=== PATIENT | female | born 1960 | race Hispanic/Latino ===

== ENCOUNTER 2017-09-05 15:52 | Outpatient (CLI) | payer OTHER | END 2017-09-05 15:53 | disposition home or self-care (01) | LOC: BICMAMMO 15:52 | PROVIDERS: ATTEND Family Medicine | DX: Z12.31 Encounter for screening mammogram for malignant neoplasm of breast (principal) | CPT/HCPCS: 77063; 77067 ==

== ENCOUNTER 2017-12-15 11:59 | Outpatient (CLI) | payer OTHER | END 2017-12-15 12:00 | disposition home or self-care (01) | LOC: BICRAD 11:59 | PROVIDERS: ATTEND Family Medicine | DX: M70.71 Other bursitis of hip, right hip (principal); M16.0 Bilateral primary osteoarthritis of hip ==

== ENCOUNTER 2018-02-20 07:40 | Observation (INO) | payer OTHER ==
[2018-02-20 08:01] LABS: #Basophils 0.1 thou/uL (0.0-0.2); #Eosinphils 0.2 thou/uL (0.0-0.7); #Monocytes 0.6 thou/uL (0.11-0.59); #Neutrophils 6.4 thou/uL (1.40-6.50); %Basophils 0.8 % (0.0-1.0); %Eosinophils 1.8 % (0.0-10.0); %Lymphocytes 22.1 % (21.0-51.0); %Monocytes 6.4 % (0.0-10.0); Mean Corpuscular HGB CONC 33.6 g/dL (32.0-36.0); Mean Corpuscular Hemoglobin 34.5 pg (27.0-31.0); Mean Platelet Volume 6.9 fL (7.4-10.4); Platelet Count 312 thou/uL (130-400); RBC Distribution Width 11.7 % (11.5-14.5); Red Blood Cell (RBC) Count 4.06 mill/uL (4.20-5.40); White Blood Cell (WBC) Count 9.3 thou/uL (4.8-10.8)
--- NOTE | 2018-02-20 08:46 | RAD ---
PORTABLE UPRIGHT FRONTAL CHEST: Date: 02/20/18 COMPARISON: 01/02/05. HISTORY: Shortness of breath, emergency examination. FINDINGS: There is no pneumothorax or pleural fluid, and no focal consolidation or alveolar edema. IMPRESSION: No acute findings. POS: [facility]
[2018-02-20 09:17] LABS: ALT (SGPT) 17 U/L (8-55); AST (SGOT) 18 U/L (5-34); Albumin 4.6 g/dL (3.5-5.0); Alkaline Phosphatase 56 U/L (40-150); Anion Gap 16 mmol/L (10-20); BUN (Urea Nitrogen) 14 mg/dL (9.8-20.1); Bilirubin, Total 0.5 mg/dL (0.2-1.2); CK (CPK) 133 U/L (29-168); Calc. Creatinine Clearance 0 mL/min (70-130); Calcium 9.9 mg/dL (7.8-10.44); Carbon Dioxide 26 mmol/L (22-29); Chloride 96 mmol/L (98-107); Estimated GFR-MDRD 89; Globulin 3.3 g/dL (2.4-3.5); Glucose 185 mg/dL (70-105); Potassium 3.4 mmol/L (3.5-5.1); Protein, Total 7.9 g/dL (6.0-8.3); Sodium 135 mmol/L (136-145)
[2018-02-20 09:19] LABS: CKMB 2.5 ng/mL (0-6.6); Troponin I Less than 0.010 ng/mL (< 0.028)
[2018-02-20 10:07] LABS: Bilirubin Negative (Negative); Blood, Urine Negative (Negative); Clarity CLEAR (Clear); Glucose, Urine (Dipstick) >=1000 mg/dL (Negative); Leukocyte Negative (Negative); Nitrite Negative (Negative); Protein, Urine (Dipstick) Negative (Neg-Trace); Specific Gravity, Urine 1.012 (1.002-1.036); Urobilinogen 0.2 mg/dL (0.2-1.0); pH, Urine 5.5 (5.0-9.0)
[2018-02-20] MEDS ORDERED: Potassium Chloride 20 MEQ TAB ONE ×2 (11:27)
[2018-02-20] MEDS ORDERED: Acetaminophen 325 MG TAB PO PRN (12:06)
[2018-02-20] MEDS ORDERED: Benzonatate 100 MG CAP PO PRN (12:06)
[2018-02-20] MEDS ORDERED: cloNIDine 0.1 MG TAB PO PRN (12:06)
[2018-02-20] MEDS ORDERED: HumaLOG 300 UNITS/3 ML VIAL SC PRN ×2 (12:06)
[2018-02-20] MEDS ORDERED: hydrALAZINE 20 MG/ML VIAL SLOW IVP PRN (12:06)
[2018-02-20] MEDS ORDERED: Acetaminophen 500 MG TAB PO PRN (12:06)
[2018-02-20] MEDS ORDERED: Dextrose 5% in Water 1,000 ML IV PRN (12:06)
[2018-02-20] MEDS ORDERED: Sodium Chloride 0.65% Nasal 44 ML BOT EA NARE PRN (12:06)
[2018-02-20] MEDS ORDERED: Dextrose 50% Abboject 50 ML SYRINGE SLOW IVP PRN (12:06)
[2018-02-20] MEDS ORDERED: Nitroglycerin 0.4 MG TAB (25 Tab Bottle) SL PRN (12:06)
[2018-02-20] MEDS ORDERED: Ondansetron PF 4 MG/2 ML Vial IVP PRN (12:06)
[2018-02-20] MEDS ORDERED: Senokot S 8.6-50 MG TAB PO PRN ×2 (12:06)
[2018-02-20] MEDS ORDERED: Bisacodyl 5 MG TAB PO PRN (12:06)
[2018-02-20] MEDS ORDERED: Aspirin 81 mg Enteric Coated Tablet PO SCH (12:15)
[2018-02-20 12:42] LABS: Troponin I Less than 0.010 ng/mL (< 0.028)
[2018-02-20 14:49] LABS: Cardiac Risk 2.4 (Less than 4.5)
[2018-02-20 14:53] LABS: Troponin I Less than 0.010 ng/mL (< 0.028)
[2018-02-20 16:03] LABS: Thyroid Stimulating Hormone 0.8535 uIU/mL (0.35-4.94)
[2018-02-20] MEDS ORDERED: Lorazepam 1 MG TAB PO PRN (18:11)
[2018-02-20] MEDS ORDERED: Lorazepam 2 MG/ML VIAL SLOW IVP PRN (18:11)
[2018-02-20] MEDS ORDERED: Carvedilol 3.125 MG TAB PO SCH (18:30)
--- NOTE | 2018-02-20 19:36 | HP ---
PRIMARY CARE PHYSICIAN: Chevy Powell MD. CHIEF COMPLAINT: Fast heart rate. HISTORY OF PRESENT ILLNESS: Ms. Sexton is a pleasant 57-year-old female with past medical history of diabetes and hypertension who presented to the ER with the above mentioned complaint. History is mainly obtained by the patient herself and supplemented by her present at the bedside. The patient reports that she has noticed the palpitation on 2 more occasions in the last few months. Last night while she went up to go to the restroom, she noticed palpitation and her checked her heart rate and blood pressure. Blood pressure was in the 150s, but her heart rate was in the 130s. She had the feeling of lightheadedness. No recent illnesses. She denies any chest pain with these symptoms. No nausea, vomiting, diarrhea, dysuria, frequency, urgency lately. No orthopnea or PND. She came to the emergency room and was found to have heart rate of 133 upon presentation. A 12-lead EKG was done which showed sinus tachycardia without any significant ectopy. It was found to be narrow complex tachycardia. Her chest x-ray and cardiac enzymes were unremarkable. She was given aspirin and saline. She was found to have low potassium which was supplemented and magnesium was checked which was unremarkable. She is now being admitted in the observation status for further workup for possible SVT. She denies any personal or family history of the same. PAST MEDICAL HISTORY: 1. Diabetes mellitus. 2. Hypertension. PAST SURGICAL HISTORY: Hysterectomy. PSYCHIATRIC HISTORY: No anxiety. No depression. SOCIAL HISTORY: She does drink quite heavily. She drinks about 4 to 6 ounces of whiskey at least up to 3 drinks per night. She used to also drink heavily beer in the day, but she has cut back on that and has not had daytime drinking in the last 5 or 6 months. She denies any drug or tobacco abuse. FAMILY HISTORY: No family history of premature coronary artery disease or stroke. ALLERGIES: NO KNOWN MEDICATION ALLERGIES. CURRENT MEDICATIONS: 1. Hydrochlorothiazide 25 mg daily. 2. Invokana 300 mg daily. 3. Amlodipine 10 mg daily. 4. Glyburide/metformin 5/500 two tablets p.o. b.i.d. 5. Synthroid 50 mcg daily. 6. Benazepril 40 mg daily. REVIEW OF SYSTEMS: A 12-point review of systems was done. It is negative except for those mentioned in the history and physical. DIAGNOSTIC STUDIES: LABORATORY RESULTS: Her CBC is rather unimpressive. She does have some macrocytosis without any anemia. D-dimer is 0.28. Serum chemistry shows sodium 135, potassium 3.4, blood sugar 185, otherwise unremarkable. Magnesium normal. Troponin less than 0.010 x3 with normal CK-MB. TSH and T4 are within normal limits. Urinalysis shows glucosuria and some ketones. IMAGING STUDIES: Chest x-ray by my review shows no acute cardiopulmonary abnormality. A 12-lead EKG by my review shows narrow complex sinus tachycardia with heart rate of 123 beats per minute. QTc interval of 463 msec. PHYSICAL EXAMINATION: VITAL SIGNS: Most recent vital signs are temperature 98.6, pulse of 102, respirations 16, saturating 96% on room air, and blood pressure 149/73. GENERAL: No acute distress. Awake, alert, and oriented x3. HEENT: Mucous membrane is moist and pink. No oropharyngeal exudate or erythema. Head is normocephalic and atraumatic. Pupils equal and reactive to light and accommodation. Extraocular movement intact. NECK: Supple without any JVD or bruit. CHEST: Clear to auscultation without any wheezing, rales, or rhonchi. She is tachycardic with regular rhythm without any specific murmurs. ABDOMEN: Soft, nontender, nondistended with positive bowel sounds. EXTREMITIES: Free of any cyanosis, clubbing, or edema. NEUROLOGIC: Nonfocal. SKIN: Free of any rashes or bruises. Feels warm and dry to touch. PSYCHIATRIC: Normal affect. IMPRESSION AND PLAN: 1. Supraventricular tachycardia. No specific causes evident at this time. The patient drinks heavily, but has been drinking on a daily basis, so withdrawal symptoms are not suspected. We will obtain transthoracic echocardiogram to rule out alcoholic cardiomyopathy as a cause. She will be continued on her home medications and we will add low dose beta-wadna at this time. Discontinue her hydrochlorothiazide in lieu of beta-wanda to prevent hypotension. Her TSH has been checked and it was found to be unremarkable. We will request consultation from Cardiology as the patient might benefit from an event or Holter monitor. Further management will depend upon her clinical course and the results of the echocardiogram. 2. Hypokalemia. It has been replaced and we will recheck in the morning. Magnesium is unremarkable. 3. Mild hyponatremia likely secondary to hydrochlorothiazide. We will hold it for now. 4. Hypertension. Restart home medication except for hydrochlorothiazide as above. 5. Dyslipidemia. Lipids panels will be ordered. 6. Alcohol abuse. The patient will be started on ASE protocol. I have encouraged her for abstinence and she seems compliant with advise at this time. She will be started on multivitamin, folic acid as well as vitamin B12. 7. Diabetes mellitus, non-insulin dependent. We will restart her home medication of Invokana, but hold her metformin and glyburide for now to avoid any acute renal failure or metabolic acidosis. Add insulin sliding scale with frequent Accu-Cheks for further control. Carb-consistent diet has been ordered. 8. Code status, full code discussed with the patient. 9. Disposition. Ms. Sexton is currently being admitted to the hospital for what sounds like supraventricular versus sinus tachycardia of unclear etiology. Further management will depend upon her clinical course and recommendations from cardiology team. She is currently in the observation status. Job ID: [id number]
[2018-02-20] MEDS: Famotidine 20 MG TAB PO SCH (20:01)
[2018-02-21] MEDS ORDERED: Levothyroxine Sodium 50 MCG TAB PO SCH (06:00)
[2018-02-21 06:46] LABS: #Basophils 0.1 thou/uL (0.0-0.2); #Eosinphils 0.2 thou/uL (0.0-0.7); #Lymphocytes 1.5 thou/uL (1.20-3.40); #Monocytes 0.7 thou/uL (0.11-0.59); #Neutrophils 3.9 thou/uL (1.40-6.50); %Eosinophils 3.2 % (0.0-10.0); %Lymphocytes 23.6 % (21.0-51.0); %Monocytes 10.3 % (0.0-10.0); %Neutrophils 61.9 % (42.0-75.0); Hemoglobin 13.5 g/dL (12.0-16.0); Mean Corpuscular HGB CONC 33.5 g/dL (32.0-36.0); Mean Corpuscular Hemoglobin 34.8 pg (27.0-31.0); Mean Platelet Volume 7.1 fL (7.4-10.4); Platelet Count 309 thou/uL (130-400); RBC Distribution Width 11.9 % (11.5-14.5); Red Blood Cell (RBC) Count 3.88 mill/uL (4.20-5.40); White Blood Cell (WBC) Count 6.3 thou/uL (4.8-10.8)
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
[2018-02-21 06:55] LABS: Anion Gap 15 mmol/L (10-20); BUN (Urea Nitrogen) 13 mg/dL (9.8-20.1); Calc. Creatinine Clearance 0 mL/min (70-130); Calcium 9.6 mg/dL (7.8-10.44); Carbon Dioxide 26 mmol/L (22-29); Chloride 102 mmol/L (98-107); Estimated GFR-MDRD Greater than 90; Glucose 116 mg/dL (70-105); Potassium 4.1 mmol/L (3.5-5.1); Sodium 139 mmol/L (136-145)
[2018-02-21] MEDS ORDERED: Carvedilol 3.125 MG TAB PO SCH (08:00)
[2018-02-21 08:17] VITALS: TEMP 98
[2018-02-21] MEDS ORDERED: Folic Acid 1 MG TAB PO SCH (09:00)
[2018-02-21] MEDS ORDERED: Enoxaparin Sodium 40 MG/0.4 ML SYRINGE SC SCH (09:00)
[2018-02-21] MEDS ORDERED: Canagliflozin [Invokana] 300 MG PO SCH (09:00)
[2018-02-21] MEDS ORDERED: Aspirin 81 mg Enteric Coated Tablet PO SCH (09:00)
[2018-02-21] MEDS: Famotidine 20 MG TAB PO SCH (09:10)
[2018-02-21] MEDS: Amlodipine 10 MG TAB PO SCH ×2 (09:10→09:15)
[2018-02-21 12:11] VITALS: BP 121/70
--- NOTE | 2018-02-21 13:49 | PDOC.CTH ---
Cardiology Progress Note - Subjective The pt seen and examined. No overnight events. No overnight events. - Objective Vital Signs Temp Pulse Resp BP BP Pulse Ox 02/21/18 13:18 87 02/21/18 12:26 46 L 02/21/18 11:09 98.0 F 91 16 121/70 94 L 02/21/18 08:00 126/73 02/21/18 07:23 98.0 F 89 16 126/73 96 02/21/18 05:54 98.4 F 88 14 134/76 99 02/21/18 04:00 121/72 Weight 5.855 oz 02/20/18 02/21/18 02/22/18 06:59 06:59 06:59 Intake Total 480 Balance 480 - Physical Examination General/Neuro: alert & oriented x3 Neck: no JVD present Lungs: CTA Heart: RRR Abdomen: soft Extremities: other: (No edema) - Telemetry Telemetry Rhythm: SR 70-80s - Labs Result Diagrams: 02/21/18 06:21 02/21/18 06:21 Troponin/CKMB CK-MB (CK-2) 2.5 ng/mL (0-6.6) 02/20/18 07:53 Troponin I Less than 0.010 ng/mL (< 0.028) 02/20/18 14:22 - Assessment/Plan 1. ST - well controlled HR with Coreg 3.125mg BID; 2. HTN - stable with Coreg 3.125mg BID only; Holding Norvasc 5mg qd and Benazepril 40mg qd. 3. DM type 2 - managed by PCP 4. ETOH abuse - ETOH cessation education given to the pt MAR reviewed * Echo on 02/20/18 showed EF 55-60% with grade I diastolic dysfunction. * The pt is stable to d/c home. Holding Norvasc and Benazepril until she f/u with Dr Yu' office within 10 days or call the office for SBP > 150. Review of Systems - Review of Systems Constitutional: reports: no symptoms reported EENTM: reports: no symptoms reported Respiratory: reports: no symptoms reported Cardiac (ROS): reports: no symptoms reported ABD/GI: reports: no symptoms reported : reports: no symptoms reported Musculoskeletal: reports: no symptoms reported Skin: reports: no symptoms reported
--- NOTE | 2018-02-21 19:24 | DIS ---
DATE OF ADMISSION: 02/20/2018 DATE OF DISCHARGE: 02/21/2018 DISCHARGE DISPOSITION: Home. FOLLOWUP: 1. Follow up with primary care physician, Dr. Chevy Powell, in one week. 2. Follow up with Cardiology, Dr. Yu, in 10 days. The patient was advised to call Dr. Yu' office if the systolic blood pressure remains over 150. ALLERGIES: NO KNOWN DRUG ALLERGIES. DISCHARGE MEDICATIONS: 1. Carvedilol 3.125 mg b.i.d. 2. Aspirin 81 mg daily. 3. Levothyroxine 50 mcg daily. 4. Glyburide and metformin 5/500 two tabs b.i.d. 5. Invokana 300 mg daily. The patient was seen and examined on the day of discharge. Denies any new complaints. No chest pain, shortness of breath, palpitations reported. BRIEF HOSPITAL COURSE: The patient is a 57-year-old female with diabetes mellitus type 2 and hypertension, presented to the hospital with palpitations. Her heart rate was in 130s at home per patient report. Please refer to the history and physical dated February 20, 2018, by Dr. Short for further details. The patient was admitted to the hospital with a diagnosis of palpitations probably secondary to supraventricular tachycardia. She underwent an echocardiogram that showed left ventricular ejection fraction 55% to 60% with diastolic dysfunction. She was started on low dose of beta blockers. There were no further episodes of sinus tachycardia noted. Thyroid studies were in normal range. D-dimer was negative. She has been cleared by Cardiology for discharge. She was advised to discontinue amlodipine and JENNY inhibitor per Cardiology. She was also advised to take multivitamin, folic acid, and thiamine due to chronic alcoholism. She was counseled to quit drinking. SIGNIFICANT LABORATORY DATA: Fasting lipid profile showed HDL of 97, LDL of 127. Magnesium of 2.0, potassium 3.5 with sodium 135. Potassium on the day of discharge was 4.1, sodium was 139. FINAL DIAGNOSES: 1. Palpitations secondary to sinus tachycardia. 2. Chronic alcohol use. 3. Hyponatremia. 4. Hypokalemia. 5. Dehydration on admission. 6. Diabetes mellitus type 2. 7. Hyperlipidemia. 8. Family history of heart disease. PLAN: Plan of care was discussed with the patient in detail. She stated understanding. Job ID: [id number]
[2018-02-21] MEDS ORDERED: Amlodipine 5 MG TAB PO SCH (21:00)
== END 2018-02-21 14:50 | disposition home or self-care (01) ==
LOC: ERS 07:40 → ERHOLD 11:15 → 2SW 17:26
PROVIDERS: ADMIT Internal Medicine; ATTEND Internal Medicine
DX: I47.1 Supraventricular tachycardia (principal); E87.1 Hypo-osmolality and hyponatremia; E87.6 Hypokalemia; E11.9 Type 2 diabetes mellitus without complications; I10 Essential (primary) hypertension; F10.10 Alcohol abuse, uncomplicated; E86.0 Dehydration; Z79.899 Other long term (current) drug therapy; Z79.84 Long term (current) use of oral hypoglycemic drugs
CPT/HCPCS: 36415; 36416; 71045; 80048; 80053; 80061; 81003; 82553; 83735; 83880; 84436; 84443; 84484; 85025; 85379; 87086; 90471; 90686; 93005; 93306; 96360; 96361; G0008; G0378; J1650

== ENCOUNTER 2018-09-20 08:31 | Outpatient (CLI) | payer OTHER ==
--- NOTE | 2018-09-20 09:55 | MMO ---
Bilateral MAMMO Bilat Screen [facility]. CLINICAL HISTORY: Patient is 58 years old and is seen for screening. The patient has no family history of breast cancer. The patient has no personal history of cancer. VIEWS: The views performed were: bilateral craniocaudal with tomosynthesis; bilateral mediolateral oblique with tomosynthesis; and right exaggerated craniocaudal. FILMS COMPARED: The present examination has been compared to a prior imaging study performed at [facility] on 09/05/2017. MAMMOGRAM FINDINGS: There are scattered fibroglandular densities. There are stable benign appearing calcifications seen in both breasts. There are no suspicious masses, suspicious calcifications, or new areas of architectural distortion. IMPRESSION: THERE IS NO MAMMOGRAPHIC EVIDENCE OF MALIGNANCY. A ROUTINE FOLLOW-UP MAMMOGRAM IN 1 YEAR IS RECOMMENDED. THE RESULTS OF THIS EXAM WERE SENT TO THE PATIENT. ACR BI-RADS Category 2 - Benign finding MAMMOGRAPHY NOTE: 1. A negative mammogram report should not delay a biopsy if a dominant of clinically suspicious mass is present. 2. Approximately 10% to 15% of breast cancers are not detected by mammography. 3. Adenosis and dense breasts may obscure an underlying neoplasm.
== END 2018-09-20 08:32 | disposition home or self-care (01) ==
LOC: BICMAMMO 08:31
PROVIDERS: ATTEND Family Medicine
DX: Z12.31 Encounter for screening mammogram for malignant neoplasm of breast (principal)
CPT/HCPCS: 77063; 77067

== ENCOUNTER 2020-02-13 12:42 | Outpatient (CLI) | payer OTHER ==
--- NOTE | 2020-02-13 13:36 | MMO ---
Bilateral MAMMO Bilat Screen [facility]. CLINICAL HISTORY: Patient is 59 years old and is seen for screening. The patient has no family history of breast cancer. The patient has no personal history of cancer. VIEWS: The views performed were: bilateral craniocaudal with tomosynthesis and bilateral mediolateral oblique with tomosynthesis. FILMS COMPARED: The present examination has been compared to prior imaging studies performed at [facility] on 05/29/2015, 06/28/2016, 09/05/2017 and 09/20/2018. This study has been interpreted with the assistance of computer-aided detection. MAMMOGRAM FINDINGS: There are scattered fibroglandular densities. Benign calcifications are noted bilaterally. There are no suspicious masses, suspicious calcifications, or new areas of architectural distortion. IMPRESSION: THERE IS NO MAMMOGRAPHIC EVIDENCE OF MALIGNANCY. A ROUTINE FOLLOW-UP MAMMOGRAM IN 1 YEAR IS RECOMMENDED. THE RESULTS OF THIS EXAM WERE SENT TO THE PATIENT. ACR BI-RADS Category 2 - Benign finding MAMMOGRAPHY NOTE: 1. A negative mammogram report should not delay a biopsy if a dominant of clinically suspicious mass is present. 2. Approximately 10% to 15% of breast cancers are not detected by mammography. 3. Adenosis and dense breasts may obscure an underlying neoplasm. Reported by: PARIS ANDERSON MD Electonically Signed: [id number]
== END 2020-02-13 12:43 | disposition home or self-care (01) ==
LOC: BICMAMMO 12:42
PROVIDERS: ATTEND Family Medicine
DX: Z12.31 Encounter for screening mammogram for malignant neoplasm of breast (principal)
CPT/HCPCS: 77063; 77067

== ENCOUNTER 2021-08-02 22:27 | Emergency (ER) | payer BC ==
[2021-08-02 23:46] LABS: #Eosinphils 0.2 thou/uL (0.0-0.7); #Lymphocytes 1.6 thou/uL (1.20-3.40); #Monocytes 0.6 thou/uL (0.11-0.59); #Neutrophils 4.7 thou/uL (1.40-6.50); %Basophils 0.5 % (0.0-1.0); %Eosinophils 3.2 % (0.0-10.0); %Lymphocytes 22.5 % (21.0-51.0); %Monocytes 8.5 % (0.0-10.0); %Neutrophils 65.3 % (42.0-75.0); Hemoglobin 13.7 g/dL (12.0-16.0); Mean Corpuscular HGB CONC 33.5 g/dL (32.0-36.0); Mean Corpuscular Hemoglobin 35.7 pg (27.0-31.0); Platelet Count 321 thou/uL (130-400); RBC Distribution Width 11.8 % (11.5-14.5); Red Blood Cell (RBC) Count 3.82 mill/uL (4.20-5.40); White Blood Cell (WBC) Count 7.3 thou/uL (4.8-10.8)
[2021-08-03 00:05] LABS: ALT (SGPT) 12 U/L (8-55); AST (SGOT) 13 U/L (5-34); Albumin 4.6 g/dL (3.4-4.8); Alkaline Phosphatase 56 U/L (40-110); Anion Gap 17 mmol/L (10-20); BUN (Urea Nitrogen) 15 mg/dL (9.8-20.1); Bilirubin, Total 0.5 mg/dL (0.2-1.2); Calc. Creatinine Clearance 0 mL/min (70-130); Calcium 9.8 mg/dL (7.8-10.44); Carbon Dioxide 25 mmol/L (23-31); Chloride 99 mmol/L (98-107); Globulin 2.9 g/dL (2.4-3.5); Glucose 130 mg/dL (80-115); Lipase 31 U/L (8-78); Potassium 4.2 mmol/L (3.5-5.1); Protein, Total 7.5 g/dL (5.8-8.1); Sodium 137 mmol/L (136-145)
== END 2021-08-03 01:45 | disposition home or self-care (01) ==
LOC: ERS 22:27
DX: I10 Essential (primary) hypertension (principal); E11.9 Type 2 diabetes mellitus without complications; Z79.84 Long term (current) use of oral hypoglycemic drugs; Z79.899 Other long term (current) drug therapy
CPT/HCPCS: 36415; 71045; 80053; 83690; 84484; 85025; 93005

== ENCOUNTER 2021-11-05 13:29 | Outpatient (CLI) | payer BC | END 2021-11-05 13:30 | disposition home or self-care (01) | LOC: BICMAMMO 13:29 | PROVIDERS: ATTEND Family Medicine | DX: Z12.31 Encounter for screening mammogram for malignant neoplasm of breast (principal); G44.211 Episodic tension-type headache, intractable | CPT/HCPCS: 70450; 77063; 77067 ==

== ENCOUNTER 2023-01-14 15:13 | Outpatient (CLI) | payer BC | END 2023-01-14 15:14 | disposition home or self-care (01) | LOC: BICMAMMO 15:13 | PROVIDERS: ATTEND Family Medicine | DX: Z12.31 Encounter for screening mammogram for malignant neoplasm of breast (principal) | CPT/HCPCS: 77063; 77067 ==

== ENCOUNTER 2023-02-15 16:30 | Emergency (ER) | payer BC ==
[2023-02-15 17:24] LABS: #Eosinphils 0.3 thou/uL (0.0-0.7); #Monocytes 0.7 thou/uL (0.11-0.59); #Neutrophils 4.2 thou/uL (1.40-6.50); %Basophils 0.5 % (0.0-1.0); %Eosinophils 3.4 % (0.0-10.0); %Lymphocytes 29.1 % (21.0-51.0); %Monocytes 9.4 % (0.0-10.0); %Neutrophils 57.3 % (42.0-75.0); Hemoglobin 13.5 g/dL (12.0-16.0); Mean Corpuscular HGB CONC 33.8 g/dL (32.0-36.0); Mean Corpuscular Hemoglobin 33.1 pg (27.0-31.0); Mean Platelet Volume 9.4 fL (7.4-10.4); Platelet Count 321 10x3/uL (130-400); RBC Distribution Width 13.2 % (11.5-14.5); Red Blood Cell (RBC) Count 4.08 mill/uL (4.20-5.40); White Blood Cell (WBC) Count 7.3 10x3/uL (4.8-10.8)
[2023-02-15 17:58] LABS: Troponin I Less than 0.010 ng/mL (< 0.028)
[2023-02-15 18:00] LABS: ALT (SGPT) 14 U/L (8-55); AST (SGOT) 14 U/L (5-34); Albumin 4.5 g/dL (3.4-4.8); Alkaline Phosphatase 53 U/L (40-110); Anion Gap 17 mmol/L (10-20); BUN (Urea Nitrogen) 16 mg/dL (9.8-20.1); Bilirubin, Total 0.4 mg/dL (0.2-1.2); Calc. Creatinine Clearance 0 mL/min (70-130); Calcium 9.8 mg/dL (7.8-10.44); Carbon Dioxide 24 mmol/L (23-31); Chloride 97 mmol/L (98-107); Estimated GFR 98; Globulin 3.1 g/dL (2.4-3.5); Glucose 122 mg/dL (80-115); Lipase 39 U/L (8-78); Potassium 4.1 mmol/L (3.5-5.1); Protein, Total 7.6 g/dL (5.8-8.1); Sodium 134 mmol/L (136-145)
[2023-02-15] MEDS ORDERED: Aspirin Chewable 81 MG TAB ONE (18:21)
[2023-02-15 21:05] LABS: Troponin I Less than 0.010 ng/mL (< 0.028)
== END 2023-02-15 22:44 | disposition home or self-care (01) ==
LOC: ERS 16:30
DX: R07.89 Other chest pain (principal); R29.700 NIHSS score 0; I10 Essential (primary) hypertension; E11.9 Type 2 diabetes mellitus without complications; Z79.84 Long term (current) use of oral hypoglycemic drugs; Z79.899 Other long term (current) drug therapy
CPT/HCPCS: 36415; 70450; 71045; 80053; 83690; 84484; 85025; 85379; 93005

== ENCOUNTER 2024-02-01 08:24 | Outpatient (CLI) | payer BC | END 2024-02-01 08:25 | disposition home or self-care (01) | LOC: BICMAMMO 08:24 | PROVIDERS: ATTEND Family Medicine | DX: Z12.31 Encounter for screening mammogram for malignant neoplasm of breast (principal) | CPT/HCPCS: 77063; 77067 ==

== ENCOUNTER 2024-10-28 16:30 | Emergency (ER) | payer BC ==
[2024-10-28 17:29] LABS: Bacteria/HPF None Seen HPF (None Seen); CAUTI Indications for Culture Alt mental st,lethar; RBC/HPF 0-3 HPF (0-3); WBC/HPF 0-3 HPF (0-3)
[2024-10-28 17:31] LABS: Urine Culture Reflex No No
[2024-10-28 17:35] LABS: Glucose, Urine (Dipstick) >=1000 mg/dL (Negative); Leukocyte Negative Leu/uL (Negative); Protein, Urine (Dipstick) Negative (Neg-Trace); Specific Gravity, Urine 1.006 (1.002-1.036)
[2024-10-28] MEDS ORDERED: Aspirin Chewable 81 MG TAB ONE ×2 (17:40→17:41)
[2024-10-28 18:29] LABS: #Basophils 0.05 10x3/uL (0.0-0.2); #Eosinophils 0.19 10x3/uL (0.0-0.7); #Monocytes 0.71 10x3/uL (0.11-0.59); #Neutrophils 4.78 10x3/uL (1.40-6.50); %Basophils 0.7 % (0.0-1.0); %Eosinophils 2.5 % (0.0-10.0); %Lymphocytes 24.4 % (21.0-51.0); %Monocytes 9.3 % (0.0-10.0); %Neutrophils 62.8 % (42.0-75.0); Hematocrit 37.2 % (36.0-47.0); Hemoglobin 13.0 g/dL (12.0-16.0); Mean Corpuscular Hemoglobin 33.2 pg (27.0-31.0); Mean Corpuscular Volume 95.1 fL (78.0-98.0); Platelet Count 274 10x3/uL (130-400); Red Blood Cell (RBC) Count 3.91 mill/uL (4.20-5.40); White Blood Cell (WBC) Count 7.61 10x3/uL (4.8-10.8)
[2024-10-28 18:43] LABS: ALT (SGPT) 18 U/L (Less than 34); AST (SGOT) 35 U/L (11-34); Albumin 4.3 g/dL (3.1-4.5); Alkaline Phosphatase 48 U/L (40-110); Anion Gap 15 mmol/L (10-20); BUN (Urea Nitrogen) 10 mg/dL (9.8-20.1); Bilirubin, Total 0.6 mg/dL (0.3-1.2); Calc. Creatinine Clearance 0 mL/min (70-130); Calcium 8.9 mg/dL (7.8-10.44); Carbon Dioxide 24 mmol/L (23-31); Chloride 91 mmol/L (98-107); Globulin 3.1 g/dL (2.4-3.5); Glucose 116 mg/dL (80-115); Potassium 3.9 mmol/L (3.5-5.1); Sodium 126 mmol/L (136-145)
[2024-10-28 18:48] LABS: Troponin I Less than 0.010 ng/mL (< 0.028)
== END 2024-10-28 19:40 | disposition home or self-care (01) ==
LOC: ERS 16:30
DX: R07.89 Other chest pain (principal); E87.1 Hypo-osmolality and hyponatremia; R20.2 Paresthesia of skin; R11.0 Nausea; R29.700 NIHSS score 0; I10 Essential (primary) hypertension; E11.9 Type 2 diabetes mellitus without complications; E03.9 Hypothyroidism, unspecified; Z79.899 Other long term (current) drug therapy; Z79.890 Hormone replacement therapy; Z79.84 Long term (current) use of oral hypoglycemic drugs
CPT/HCPCS: 70450; 71045; 80053; 81001; 84484; 85025; 93005